=== PATIENT | female | born 1995 | race Two or more races ===

== ENCOUNTER 2017-06-16 21:50 | Emergency (ER) | payer SELFPAY ==
[~2017-06-16] VITALS: Ht 167.6 cm; Wt 81.6 kg
[2017-06-16 23:33] VITALS: BP 119/81
[2017-06-16] MEDS ORDERED: ONDA4TAB10 PO (23:40)
--- NOTE | 2017-06-16 23:45 | PHYS DOC ---
General Chief Complaint: NAUSEA/VOMITING/DIARRHEA Stated Complaint: N/V/D FEVER Time Seen by MD: 23:38 Source: patient Exam Limitations: no limitations Problems: History of Present Illness Initial Comments Patient is a 21-year-old female who comes to the ED complaining of nausea and concerned she may be . Patient states that she's had nausea today with mild headache and body aches, no measured fevers no vomiting or diarrhea. No travel or bad food exposure, last menstrual period is unknown. Patient is sexually active unprotected denies taking control. Denies focal abdominal pain complaints symptoms are described as mild. Vital signs are stable. Timing/Duration: other Modifying Factors: improves with other Associated Symptoms: headaches, nausea/vomiting, other Allergies: Coded Allergies: bee venom protein (honey bee) (Verified Allergy, Unknown, 06/16/17) mushroom (Verified Allergy, Unknown, 06/16/17) Uncoded Allergies: UNKNOWN (Allergy, Unknown, 06/16/17) PT STATED "I KNOW I AM ALLERGIC TO SOMETHING, BUT I DONT KNOW WHAT". Past Medical History Medical History: other (asthma, anxiety, bipolar disorder, depression) Surgical History: cholecystectomy, tonsillectomy LMP (Females 10-50): unknown Social History Smoker: cigarettes Alcohol: none Drugs: marijuana Review of Systems Constitutional: chills, denies diaphoresis, denies fever, malaise Respiratory: denies cough, denies shortness of breath Cardiovascular: denies chest pain, denies palpitations Gastrointestinal: see HPI, denies abdominal pain, denies constipation, denies diarrhea, nausea, denies vomiting Genitourinary: denies dysuria, denies frequency, denies hematuria Musculoskeletal: denies back pain, denies joint swelling, denies neck pain Psychiatric/Neurological: see HPI, headache, denies numbness, denies paresthesia Physical Exam General Appearance: no apparent distress Ear, Nose, Throat: hearing grossly normal, normal ENT inspection, normal pharynx Neck: non-tender, supple Respiratory: normal breath sounds, no respiratory distress Cardiovascular: normal peripheral pulses, regular rate, rhythm Gastrointestinal: non tender, soft Back: no CVA tenderness, no vertebral tenderness Neurologic/Psychiatric: 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 I discussed possibility that she is developing a viral gastroenteritis , discussed prescription and [id number] medications as well as dietary modifications. She expressed agreement and understanding with the discharge instructions. Departure Time of Disposition: 23:41 Disposition: 01 HOME, SELF-CARE Diagnosis: viral gastroenteritis Condition: GOOD Patient Instructions: Viral Gastroenteritis, [id number] Additional Instructions: Please review the patient education materials given by ED staff. Clear liquids tonight, advance diet slowly tomorrow as tolerated. Aggressive hydration with Gatorade and water. Zofran ODT start pack was dispensed to you in the ED, take one every 6 hours as needed for nausea and vomiting. Prescription: Zofran ODT Off work through June 30, note given. Cultured yogurt twice daily, (caity garcia) Follow-up with her doctor in 5-7 days if not better. Return to ED with new or changing symptoms. JOSE ROBERTS DO Jun 16, 2017 23:45
[2017-06-16] MEDS ORDERED: ONDANSETRON 4MG ODT 4TABLET STARTPACK. PO ONE (23:55)
[2017-06-16] MEDS ORDERED: ONDANSETRON ODT 4 MG TAB.RAPDIS PO ONE (23:55)
== END 2017-06-17 00:01 | disposition home or self-care (01) ==
LOC: ER 21:50
DX: A08.4 Viral intestinal infection, unspecified (principal); R51 Headache; F12.10 Cannabis abuse, uncomplicated; F17.210 Nicotine dependence, cigarettes, uncomplicated; J45.909 Unspecified asthma, uncomplicated; Z91.030 Bee allergy status; Z91.018 Allergy to other foods
CPT/HCPCS: 81025; 99283; Q0162

== ENCOUNTER 2017-07-12 01:29 | Emergency (ER) | payer SELFPAY ==
[~2017-07-12] VITALS: Ht 154.9 cm; Wt 103.0 kg
[~2017-07-12 01:29] MED LIST: ONDA4TAB10 PO
--- NOTE | 2017-07-12 01:49 | ED.ADGEN ---
Past History Past Medical History: Anxiety, Asthma, Bipolar, Depression Past Surgical History: Cholecystectomy, Tonsillectomy Alcohol Use: None Drug Use: Marijuana Adult General Chief Complaint Chief Complaint " I ve been sick a week or so... but the coughing started today... My grandmother has flu..." HPI HPI Patient is a 21 year old female who presents with above hx and complaints nausea , fever, chills, myalgia, malaise, arthralgia, and nonproductive cough. She has been exposed to her grandmother who has an influenza A. Patient did not get a flu vaccination this year. Patient normally healthy. No recent travel. No history immunosuppression. History of asthma, anxiety, bipolar disorder, depression. Review of Systems Review of Systems Constitutional: History fever or chills [] Eyes: Denies change in visual acuity, redness, or eye pain [] HENT: History nasal congestion and sore throat [] Respiratory: History cough and wheezing Cardiovascular: No additional information not addressed in HPI [] GI: Denies abdominal pain, nausea, vomiting, bloody stools or diarrhea [] : Denies dysuria or hematuria [] Musculoskeletal: Denies back pain or joint pain [] Integument: Denies rash or skin lesions [] Neurologic: Denies headache, focal weakness or sensory changes [] Endocrine: Denies polyuria or polydipsia [] All other systems were reviewed and found to be within normal limits, except as documented in this note. Family History Family History Grandmother of influenza Current Medications Current Medications Current Medications Medications (Trade) Dose Ordered Sig/Karen Start Time Stop Time Status Last Admin Dose Admin Albuterol Sulfate (Ventolin Hfa) 2 puff 1X ONCE 07/12/17 02:00 07/12/17 02:01 DC 07/12/17 02:47 2 PUFF Prednisone (Prednisone) 50 mg ONCE ONCE 07/12/17 02:45 07/12/17 02:46 DC 07/12/17 02:47 50 MG See nursing for home meds- Depo-Provera for control Allergies Allergies Allergies Coded Allergies Type Severity Reaction Last Updated Verified bee venom protein (honey bee) Allergy Unknown 06/16/17 Yes mushroom Allergy Unknown 06/16/17 Yes Uncoded Allergies Type Severity Reaction Last Updated Verified UNKNOWN Allergy Unknown 06/16/17 See nursing for home meds Physical Exam Physical Exam Constitutional: , well nourished, moderately acute distress, non-toxic appearance. [] HENT: Normocephalic, atraumatic, bilateral external ears normal, oropharynx moist, injected pharynx, no oral exudates, nose swollen turbinates and rhinorrhea Eyes: PERRLA, EOMI, conjunctiva normal, no discharge. [] Neck: Normal range of motion, no tenderness, supple, no stridor. [] Cardiovascular: Tachycardia Heart rate regular rhythm, no murmur [] Lungs & Thorax: Bilateral breath sounds equal with few scattered wheezes on auscultation [] Abdomen: Bowel sounds normal, soft, no tenderness, no masses, no pulsatile masses. Obese. Old surgical scar Skin: Warm, dry, no erythema, no rash. [] Back: No tenderness, no CVA tenderness. [] Extremities: No tenderness, no cyanosis, no clubbing, ROM intact, no edema. [] Neurologic: Alert and oriented X 3, normal motor function, normal sensory function, no focal deficits noted. [] Psychologic: Affect anxious, judgement normal, mood normal. [] Current Patient Data Lab Results Laboratory Tests Test 07/12/17 01:33 07/12/17 02:13 Influenza Type A (Rapid) Negative (NEGATIVE) Influenza Type B (Rapid) Negative (NEGATIVE) Group A Streptococcus Rapid Negative (NEGATIVE) Urine Test Negative (NEG) EKG EKG [] Radiology/Procedures Radiology/Procedures [] Course & Med Decision Making Course & Med Decision Making Pertinent Labs and Imaging studies reviewed. (See chart for details). Push fluids. Cool drinks and fruit juices. Tylenol and ibuprofen for discomfort and fever. Benadryl 25-50 mg 4 times a day may be helpful. Follow-up primary care. Use MDI 2 puffs 4 times a day. Prednisone 50 mg a day for 5 days. [] Final Impression Final Impression 1. Viral syndrome[] 2. Asthma Exacerbation Problems: Dragon Disclaimer Dragon Disclaimer This electronic medical record was generated, in whole or in part, using a voice recognition dictation system. ELIZABETH TAYLOR MD Jul 12, 2017 01:49
[2017-07-12] MEDS ORDERED: ALBUTEROL SULFATE 8GM INHALER. INH ONE (02:00)
[2017-07-12] MEDS ORDERED: predniSONE 10 MG TABLET PO ONE (02:00)
[2017-07-12] MEDS ORDERED: predniSONE 20 MG TABLET PO ONE (02:45)
[2017-07-12 03:04] VITALS: BP 128/69
[2017-07-12 03:07] LABS: INFLUENZA A PATIENT NEGATIVE (NEGATIVE); INFLUENZA B PATIENT NEGATIVE (NEGATIVE)
[2017-07-12 03:19] LABS: U PREG PATIENT NEGATIVE (NEG)
[2017-07-12] MEDS ORDERED: PRED50TA PO (03:27)
== END 2017-07-12 04:14 | disposition home or self-care (01) ==
LOC: ER 01:29
DX: B34.9 Viral infection, unspecified (principal); J45.901 Unspecified asthma with (acute) exacerbation; F41.9 Anxiety disorder, unspecified; F31.9 Bipolar disorder, unspecified; F12.10 Cannabis abuse, uncomplicated; Z91.030 Bee allergy status; Z91.018 Allergy to other foods
CPT/HCPCS: 81025; 87070; 87804; 87880; 94640; 99284; J7512; J7613

== ENCOUNTER 2017-08-25 18:29 | Emergency (ER) | payer OTHER ==
[~2017-08-25] VITALS: Ht 154.9 cm; Wt 97.5 kg
[~2017-08-25 18:29] MED LIST changes: +PRED50TA PO
--- NOTE | 2017-08-25 18:32 | ED.ADGEN ---
Past History Past Medical History: Anxiety, Asthma, Bipolar, Depression Past Surgical History: Cholecystectomy, Tonsillectomy Alcohol Use: None Drug Use: Marijuana Adult General Chief Complaint Chief Complaint " I slipped and fell again and hurt this Rt knee.. it same leg I hurt before... and got a DVT in.. but I ve been taking my blood clot meds... but now I ve hurt this knee..." HPI HPI Patient is a 21 year old female who presents with above hx and complaints of right knee pain. Patient localizes pain in the patella and hamstring tendons. No appreciable cording, butt does have tenderness in calf area of previously diagnosed DVT. Distal neurovascular intact. Is able to do straight leg lift. Anterior and posterior cruciate ligaments appear to be intact. Mild tenderness of bilateral collateral ligaments. No other injuries reported. Distal neurovascular appears intact. Review of Systems Review of Systems Constitutional: Denies fever or chills [] Eyes: Denies change in visual acuity, redness, or eye pain [] HENT: Denies nasal congestion or sore throat [] Respiratory: Denies cough or shortness of breath [] Cardiovascular: No additional information not addressed in HPI [] GI: Denies abdominal pain, nausea, vomiting, bloody stools or diarrhea [] : Denies dysuria or hematuria [] Musculoskeletal: Complaints of Rt. knee pain Integument: Denies rash or skin lesions [] Neurologic: Denies headache, focal weakness or sensory changes [] Endocrine: Denies polyuria or polydipsia [] All other systems were reviewed and found to be within normal limits, except as documented in this note. Family History Family History Noncontributory Current Medications Current Medications Current Medications Medications (Trade) Dose Ordered Sig/Karen Start Time Stop Time Status Last Admin Dose Admin Oxycodone/ Acetaminophen (Percocet 5/325) 2 tab 1X ONCE 08/25/17 19:45 08/25/17 19:46 DC 08/25/17 19:56 2 TAB See nursing for home meds. Allergies Allergies Allergies Coded Allergies Type Severity Reaction Last Updated Verified bee venom protein (honey bee) Allergy Unknown 06/16/17 Yes mushroom Allergy Unknown 06/16/17 Yes Uncoded Allergies Type Severity Reaction Last Updated Verified UNKNOWN Allergy Unknown 06/16/17 Physical Exam Physical Exam Constitutional: Moderately acute distress, non-toxic appearance. [] HENT: Normocephalic, atraumatic, bilateral external ears normal, oropharynx moist, no oral exudates, nose normal. [] Eyes: PERRLA, EOMI, conjunctiva normal, no discharge. [] Neck: Normal range of motion, no tenderness, supple, no stridor. [] Cardiovascular:Heart rate regular rhythm, no murmur [] Lungs & Thorax: Bilateral breath sounds equal at apexes with scattered wheezes on auscultation [] Abdomen: Bowel sounds normal, soft, no tenderness, no masses, no pulsatile masses. Obese. Old surgery scars Skin: Warm, dry, no erythema, no rash. [] Back: No tenderness, no CVA tenderness. [] Extremities: No tenderness, no cyanosis, no clubbing, ROM intact, no edema. [] Except findings and right knee as per history of present illness Neurologic: Alert and oriented X 3, normal motor function, normal sensory function, no focal deficits noted. [] Psychologic: Affect anxious, judgement normal, mood normal. [] Current Patient Data Vital Signs Vital Signs Date Time Temp Pulse Resp B/P (MAP) Pulse Ox O2 Delivery O2 Flow Rate FiO2 08/25/17 20:17 98.3 97 20 126/87 (100) 99 08/25/17 19:56 Room Air EKG EKG [] Radiology/Procedures Radiology/Procedures My interpretation of knee films shows no obvious fracture dislocation.[] Course & Med Decision Making Course & Med Decision Making Pertinent Labs and Imaging studies reviewed. (See chart for details). Ice packs as needed. Cole wrap. Rest and elevation. Tylenol and ibuprofen for pain. Continue Xarelto as directed. Stop smoking. Return if any concerns. Follow up with primary. [] Final Impression Final Impression 1. Sprain / Strain 2. Hx of Rt. calf DVT[] Problems: Dragon Disclaimer Dragon Disclaimer This electronic medical record was generated, in whole or in part, using a voice recognition dictation system. ELIZABETH TAYLOR MD Aug 25, 2017 18:32
[2017-08-25] MEDS ORDERED: oxyCODONE/APAP 5/325 1 TAB TABLET PO ONE (19:45)
[2017-08-25 20:17] VITALS: BP 126/87
--- NOTE | 2017-08-26 07:41 | RAD ---
4 views right knee 08/25/2017 8:51 PM Indication: injury- fall Comparison: None Findings: There is no fracture or dislocation identified. Articular surfaces are uninterrupted. Soft tissues are unremarkable. Impression: No evidence of acute osseous abnormality
== END 2017-08-25 20:17 | disposition home or self-care (01) ==
LOC: ER 18:29
DX: M25.561 Pain in right knee (principal); Z86.718 Personal history of other venous thrombosis and embolism; J45.909 Unspecified asthma, uncomplicated; F12.10 Cannabis abuse, uncomplicated; F31.9 Bipolar disorder, unspecified; F41.9 Anxiety disorder, unspecified; Z91.030 Bee allergy status; Z91.018 Allergy to other foods; W01.0XXA Fall on same level from slipping, tripping and stumbling without subsequent striking against object, initial encounter; Y93.89 Activity, other specified; Y99.8 Other external cause status; Y92.89 Other specified places as the place of occurrence of the external cause
CPT/HCPCS: 73564; 99284

== ENCOUNTER 2017-10-11 21:18 | Emergency (ER) | payer OTHER ==
[~2017-10-11] VITALS: Ht 154.9 cm; Wt 90.0 kg
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
--- NOTE | 2017-10-11 22:25 | EKG ---
[address] [address] Test Date: 2017-10-11 Test Time: 22:21:38 Pat Name: HARSHAD STUBBS Department: Room: Gender: F Job Lithographer: CARLOS ALBERTO : 1995 Requested By: ELIZABETH TAYLOR Order Number: [id number] Reading MD: Measurements Intervals [place] Rate: 64 P: 24 CT: 160 QRS: 41 QRSD: 96 T: 35 QT: 372 QTc: 388 Interpretive Statements SINUS RHYTHM ATRIAL PREMATURE COMPLEX(ES) NO SPECIFIC ECG ABNORMALITIES RI6.01 No previous ECG available for comparison
[2017-10-11] MEDS ORDERED: IV RINGERS SOLUTION,LACTATED 1,000 ML IV SCH (22:30)
[2017-10-11] MEDS ORDERED: FAMOTIDINE 20 MG/2 ML VIAL IVP ONE (22:30)
[2017-10-11] MEDS ORDERED: KETOROLAC 30 MG/ML VIAL. IV ONE (22:30)
[2017-10-11] MEDS ORDERED: ONDANSETRON PF 4 MG/2 ML VIAL. IV ONE (22:30)
[2017-10-11 22:35] LABS: BASO # 0.1 x10^3/uL (0.0-0.2); BASO % 1 % (0-3); EOS # 0.3 x10^3/uL (0.0-0.7); EOS % 3 % (0-3); HEMATOCRIT 39.3 % (36.0-47.0); HEMOGLOBIN 13.3 g/dL (12.0-15.5); LYMPH # 2.6 x10^3/uL (1.0-4.8); LYMPH % 22 % (24-48); MEAN CORPUSCULAR HEMOGLOBIN 28 pg (25-35); MEAN CORPUSCULAR HGB CONC 34 g/dL (31-37); MEAN CORPUSCULAR VOLUME 84 fL (79-100); MONO # 0.9 x10^3/uL (0.0-1.1); MONO % 8 % (0-9); NEUT # 8.1 x10^3uL (1.8-7.7); NEUT % 67 % (31-73); PLATELET COUNT 242 x10^3/uL (140-400); RED CELL DISTRIBUTION WIDTH 13.3 % (11.5-14.5)
[2017-10-11 22:37] LABS: BARBITURATES NEG (NEG); BENZODIAZEPINES NEG (NEG); CANNABINOIDS POS (NEG); COCAINE NEG (NEG); METHADONE NEG (NEG); OPIATES NEG (NEG); PHENCYCLIDINE NEG (NEG)
[2017-10-11 22:38] LABS: AMPHETAMINE/METHAMPHETAMINE NEG (NEG)
[2017-10-11 22:41] LABS: ALBUMIN 3.4 g/dL (3.4-5.0); CALCIUM 8.7 mg/dL (8.5-10.1); CREATININE 0.7 mg/dL (0.6-1.0); DIRECT BILIRUBIN 0.1 mg/dL (0.0-0.2); GFR 103.7; POTASSIUM 3.8 mmol/L (3.5-5.1); TOTAL BILIRUBIN 0.3 mg/dL (0.2-1.0); TOTAL PROTEIN 6.9 g/dL (6.4-8.2)
[2017-10-11 22:47] LABS: BACTERIA,URINE 0 /HPF (0-FEW); BILIRUBIN,URINE NEG (NEG); CLARITY,URINE CLEAR; COLOR,URINE YELLOW; GLUCOSE,URINE NEG (NEG); NITRITE,URINE NEG (NEG); RBC,URINE 0 /HPF (0-2); SQUAMOUS EPITHELIAL CELL,UR OCC /LPF; UROBILINOGEN,URINE 0.2 mg/dL (0.2 mg/dL)
[2017-10-11] MEDS ORDERED: ONDA8TAB12 PO (23:07)
[2017-10-11] MEDS ORDERED: SULF1TAB23 PO (23:07)
[2017-10-11 23:30] VITALS: BP 119/70
--- NOTE | 2017-10-12 07:42 | RAD ---
Abdominal series including frontal chest radiograph and 2 views of the abdomen 10/12/2017 Indication: Abdominal pain. Nausea. Vomiting. Comparison study: None Findings: The lungs are clear. Heart size is normal. No pneumothorax or pleural effusion is identified. Bony thorax is intact. No gross pneumoperitoneum is identified. The bowel gas pattern is nonobstructive. Prior cholecystectomy noted. No acute osseous changes are seen. Impression: No radiographic evidence of acute cardiopulmonary or intra-abdominal process
== END 2017-10-11 23:33 | disposition home or self-care (01) ==
LOC: ER 21:18
DX: N39.0 Urinary tract infection, site not specified (principal); B34.9 Viral infection, unspecified; F12.90 Cannabis use, unspecified, uncomplicated; F41.9 Anxiety disorder, unspecified; J45.909 Unspecified asthma, uncomplicated; F31.9 Bipolar disorder, unspecified; K58.0 Irritable bowel syndrome with diarrhea; Z90.49 Acquired absence of other specified parts of digestive tract; Z72.0 Tobacco use; Z91.030 Bee allergy status; Z91.018 Allergy to other foods
CPT/HCPCS: 36415; 74022; 80048; 80076; 80307; 81001; 81025; 82150; 83690; 85025; 85610; 85730; 87086; 93005; 96361; 96374; 96375; 99285; J1885; J2405; J7120; S0028; G0479

== ENCOUNTER 2017-10-28 08:53 | Emergency (ER) | payer OTHER ==
[~2017-10-28] VITALS: Ht 154.9 cm; Wt 85.8 kg
[~2017-10-28 08:53] MED LIST changes: +ONDA8TAB12 PO; +SULF1TAB23 PO
[2017-10-28 09:56] LABS: BASO # 0.1 x10^3/uL (0.0-0.2); BASO % 1 % (0-3); EOS # 0.2 x10^3/uL (0.0-0.7); EOS % 3 % (0-3); HEMATOCRIT 36.7 % (36.0-47.0); HEMOGLOBIN 12.4 g/dL (12.0-15.5); LYMPH # 1.6 x10^3/uL (1.0-4.8); LYMPH % 20 % (24-48); MEAN CORPUSCULAR HEMOGLOBIN 28 pg (25-35); MEAN CORPUSCULAR HGB CONC 34 g/dL (31-37); MEAN CORPUSCULAR VOLUME 83 fL (79-100); MONO # 0.7 x10^3/uL (0.0-1.1); MONO % 9 % (0-9); NEUT # 5.5 x10^3uL (1.8-7.7); NEUT % 68 % (31-73); PLATELET COUNT 248 x10^3/uL (140-400); RED BLOOD COUNT 4.42 x10^6/uL (3.50-5.40); RED CELL DISTRIBUTION WIDTH 13.4 % (11.5-14.5); WHITE BLOOD COUNT 8.2 x10^3/uL (4.0-11.0)
[2017-10-28 10:01] LABS: BILIRUBIN,URINE NEG (NEG); CLARITY,URINE CLOUDY; COLOR,URINE AMBER; GLUCOSE,URINE NEG (NEG)
[2017-10-28 10:02] LABS: BACTERIA,URINE FEW /HPF (0-FEW); NITRITE,URINE NEG (NEG); SQUAMOUS EPITHELIAL CELL,UR MOD /LPF; UROBILINOGEN,URINE 0.2 mg/dL (0.2 mg/dL)
[2017-10-28 10:23] LABS: ALBUMIN 3.3 g/dL (3.4-5.0); CALCIUM 8.6 mg/dL (8.5-10.1); CREATININE 0.6 mg/dL (0.6-1.0); DIRECT BILIRUBIN 0.1 mg/dL (0.0-0.2); GFR 123.9; POTASSIUM 3.7 mmol/L (3.5-5.1); TOTAL BILIRUBIN 0.2 mg/dL (0.2-1.0); TOTAL PROTEIN 6.4 g/dL (6.4-8.2)
--- NOTE | 2017-10-28 11:01 | RAD ---
Obstetrical ultrasound, 10/28/2017: HISTORY: Right lower quadrant pain, Transabdominal and transvaginal scans were obtained. The uterus contains a small gestational sac demonstrating a mean diameter of 6 mm compatible with a gestational age of 5 weeks and 2 days. A yolk sac is evident within the gestational sac. A pole is not identified. That is not abnormal at this early stage. The sonographic EDC is 04/28/2019. There is a small irregular hypoechoic area in the central uterine cavity suggesting a small subchorionic hemorrhage. It measures approximately 0.5 x 1.6 cm. The ovaries are of normal size. There is a 1.5 cm cyst in the left ovary. A 1.3 cm cyst is evident in the right ovary. Blood flow is present in both ovaries. The adnexal regions are otherwise unremarkable. There is a small amount of simple free fluid in the cul-de-sac. IMPRESSION: 1. Early intrauterine gestational sac of 5-6 weeks gestational age. 2. Small subchorionic hemorrhage. 3. Small bilateral ovarian cysts. 4. Small amount of free fluid in the cul-de-sac. Electronically signed by: Anthony Miller MD (10/28/2017 10:58 AM) [facility]
[2017-10-28 11:36] VITALS: BP 113/61
[2017-10-28] MEDS ORDERED: CEPH-263 PO (11:50)
--- NOTE | 2017-10-28 11:50 | PHYS DOC ---
Past History Past Medical History: Anxiety, Bipolar, Depression, IBS Past Surgical History: Cholecystectomy Alcohol Use: None Drug Use: Marijuana Adult General Chief Complaint Chief Complaint: abdominal pain HPI HPI 21-year-old female who is a presenting to the emergency department today with abdominal pain in . Her pain is a sharp shooting pain in the suprapubic region which is nonradiating intermittent and without alleviating factors. It is a mild pain. His been present for about 1-2 days. She denies any vaginal bleeding. She has a family history of ectopic . She denies a personal history of ectopic . Review of systems is negative for fevers chills nausea vomiting diarrhea constipation. She denies any rashes on her groin, exposure to STDs or changes in vaginal discharge. All other review of systems is negative unless otherwise noted in history of present illness. ED course: 21-year-old female presenting to the emergency department today with suprapubic abdominal pain. On arrival she is afebrile with a normal heart rate. On examination she is a soft nontender abdomen without rebound tenderness or guarding. Otherwise the remainder the exam is unremarkable. Blood work sent along with ultrasound. Intrauterine identified. Patient does have bacteria in her urine. Simple cystitis versus asymptomatic bacteriuria. 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 The patient has been examined and was not found to have an emergency medical condition. The patient was then discharged home in stable condition. They were to return if their symptoms worsened or if they were concerned for any reason. [id number] discharge instructions and return precautions were given. Patient's questions were answered to their satisfaction. Patient is comfortable with plan. Review of Systems Review of Systems SEE ABOVE. Allergies Allergies Allergies Coded Allergies Type Severity Reaction Last Updated Verified bee venom protein (honey bee) Allergy Unknown 06/16/17 Yes mushroom Allergy Unknown 06/16/17 Yes Physical Exam Physical Exam SEE ABOVE Constitutional: Well developed, well nourished, no acute distress, non-toxic appearance. HENT: Normocephalic, atraumatic, bilateral external ears normal, oropharynx moist, no oral exudates, nose normal. [] Eyes: PERRLA, EOMI, conjunctiva normal, no discharge. [] Neck: Normal range of motion, no tenderness, supple, no stridor. Cardiovascular:Heart rate regular rhythm, no murmur [] Lungs & Thorax: Bilateral breath sounds clear to auscultation [] Abdomen: Bowel sounds normal, soft, no tenderness, no masses, no pulsatile masses. [] Skin: Warm, dry, no erythema, no rash. Back: No tenderness, no CVA tenderness. [] Extremities: No tenderness, no cyanosis, no clubbing, ROM intact, no edema. [] Neurologic: Alert and oriented X 3, normal motor function, normal sensory function, no focal deficits noted. [] Psychologic: Affect normal, judgement normal, mood normal. [] Current Patient Data Vital Signs Vital Signs Date Time Temp Pulse Resp B/P (MAP) Pulse Ox O2 Delivery O2 Flow Rate FiO2 10/28/17 11:36 79 113/61 (78) 10/28/17 09:18 98.2 18 99 Room Air Lab Results Laboratory Tests Test 10/28/17 09:10 10/28/17 09:31 Urine Collection Type Unknown Urine Color [place] Urine Clarity Cloudy Urine pH 6.5 Urine Specific [place] 1.025 Urine Protein Trace (NEG-TRACE) Urine Glucose (UA) Neg mg/dL (NEG) Urine Ketones (Stick) Neg mg/dL (NEG) Urine Blood Neg (NEG) Urine Nitrite Neg (NEG) Urine Bilirubin Neg (NEG) Urine Urobilinogen Dipstick 0.2 mg/dL (0.2 mg/dL) Urine Leukocyte Esterase Trace (NEG) Urine RBC 1-2 /HPF (0-2) Urine WBC 5-10 /HPF (0-4) Urine Squamous Epithelial Cells Mod /LPF Urine Bacteria Few /HPF (0-FEW) Urine Mucus Slight /LPF White Blood Count 8.2 x10^3/uL (4.0-11.0) Red Blood Count 4.42 x10^6/uL (3.50-5.40) Hemoglobin 12.4 g/dL (12.0-15.5) Hematocrit 36.7 % (36.0-47.0) Mean Corpuscular Volume 83 fL (79-100) Mean Corpuscular Hemoglobin 28 pg (25-35) Mean Corpuscular Hemoglobin Concent 34 g/dL (31-37) Red Cell Distribution Width 13.4 % (11.5-14.5) Platelet Count 248 x10^3/uL (140-400) Neutrophils (%) (Auto) 68 % (31-73) Lymphocytes (%) (Auto) 20 % (24-48) L Monocytes (%) (Auto) 9 % (0-9) Eosinophils (%) (Auto) 3 % (0-3) Basophils (%) (Auto) 1 % (0-3) Neutrophils # (Auto) 5.5 x10^3uL (1.8-7.7) Lymphocytes # (Auto) 1.6 x10^3/uL (1.0-4.8) Monocytes # (Auto) 0.7 x10^3/uL (0.0-1.1) Eosinophils # (Auto) 0.2 x10^3/uL (0.0-0.7) Basophils # (Auto) 0.1 x10^3/uL (0.0-0.2) Maternal Serum HCG Beta Subunit 2051 mIU/mL (0-6) H Sodium Level 140 mmol/L (136-145) Potassium Level 3.7 mmol/L (3.5-5.1) Chloride Level 107 mmol/L (98-107) Carbon Dioxide Level 23 mmol/L (21-32) Anion Gap 10 (6-14) Blood Urea Nitrogen 6 mg/dL (7-20) L Creatinine 0.6 mg/dL (0.6-1.0) Estimated GFR (Cockcroft-Gault) 123.9 Glucose Level 96 mg/dL (70-99) Calcium Level 8.6 mg/dL (8.5-10.1) Total Bilirubin 0.2 mg/dL (0.2-1.0) Direct Bilirubin 0.1 mg/dL (0.0-0.2) Aspartate Amino Transferase (AST) 15 U/L (15-37) Alanine Aminotransferase (ALT) 19 U/L (14-59) Alkaline Phosphatase 58 U/L (46-116) Total Protein 6.4 g/dL (6.4-8.2) Albumin 3.3 g/dL (3.4-5.0) L Lipase 77 U/L (73-393) EKG EKG [] Radiology/Procedures Radiology/Procedures [] Course & Med Decision Making Course & Med Decision Making Pertinent Labs and Imaging studies reviewed. (See chart for details) [] Dragon Disclaimer Dragon Disclaimer This electronic medical record was generated, in whole or in part, using a voice recognition dictation system. Departure Departure: Impression: Primary Impression: Abdominal pain affecting Additional Impression: Bacteriuria Disposition: HOME, SELF-CARE Condition: STABLE Referrals: PCP,LU (PCP) Patient Instructions: Abdominal Pain Additional Instructions: Thank you for allowing us to participate in your care today. Followup with your primary care physician in 3 days if your symptoms do not improve. Call your Primary Doctor tomorrow and inform them of your visit today. If you do not have a primary care provider you can ask for a list of our primary care providers. Return to the emergency department you have any new or concerning findings. This should be evaluated by the primary care physician and any necessary consulting services for continued management within a few days after discharge. Return to emergency room if you have any new or concerning symptoms including but not limited to fever, chills, nausea, vomiting, intractable pain, any new rashes, chest pain, shortness of air, uncontrolled bleeding, difficulty breathing, and/or vision loss. If at any time, you are having difficulty getting into your primary care doctor or a specialist, return to the emergency department. Scripts Cephalexin (KEFLEX) 250 Mg Capsule 1 CAP PO QID, #20 CAP Prov: RENATO JOHNSON MD 10/28/17 Problem Qualifiers REANTO JOHNSON MD October 28, 2017 11:50
== END 2017-10-28 12:02 | disposition home or self-care (01) ==
LOC: ER 08:53
DX: O26.891 Other specified pregnancy related conditions, first trimester (principal); R82.71 Bacteriuria; O99.341 Other mental disorders complicating pregnancy, first trimester; O99.611 Diseases of the digestive system complicating pregnancy, first trimester; O99.321 Drug use complicating pregnancy, first trimester; F41.9 Anxiety disorder, unspecified; F31.9 Bipolar disorder, unspecified; K58.9 Irritable bowel syndrome, unspecified; F12.10 Cannabis abuse, uncomplicated; Z3A.01 Less than 8 weeks gestation of pregnancy; Z91.030 Bee allergy status; Z91.018 Allergy to other foods
CPT/HCPCS: 36415; 76801; 76817; 80048; 80076; 81001; 83690; 84702; 85025; 86901; 87086; 99285-25

== ENCOUNTER 2017-11-14 12:26 | Emergency (ER) | payer OTHER ==
[~2017-11-14] VITALS: Ht 154.9 cm; Wt 84.4 kg
[~2017-11-14 12:26] MED LIST changes: +CEPH-263 PO
[2017-11-14] MEDS ORDERED: IV NORMAL SALINE 1,000ML 1,000 ML IV ONE (12:45)
[2017-11-14] MEDS ORDERED: PROCHLORPERAZINE 10 MG/2 ML VIAL. IV ONE (13:00)
[2017-11-14 13:17] LABS: CALCIUM 9.3 mg/dL (8.5-10.1); CREATININE 0.6 mg/dL (0.6-1.0); GFR 123.9; POTASSIUM 3.6 mmol/L (3.5-5.1)
--- NOTE | 2017-11-14 13:22 | PHYS DOC ---
Past History Past Medical History: Anxiety, Bipolar, Depression, IBS Past Surgical History: Cholecystectomy Alcohol Use: None Drug Use: Marijuana Adult General Chief Complaint Chief Complaint: ABDOMINAL PAIN IN HPI HPI 21-year-old female presents with 2 day history of nausea, vomiting, and abdominal pain. Patient is about 8 weeks . For the last 2 days she has been very nauseated and has had difficulty even keeping down fluids. Last night the patient began to have some lower right quadrant abdominal "pulling" this is gotten somewhat worse today. The patient presents to ED today because when she went to stand up she felt very dizzy and thought she might black out. She decided she might be overly dehydrated and should seek medical care. He denies fever or chills. She has no known sick contacts. She has not had significant vomiting with her previous pregnancies. She denies any vaginal bleeding. She had an ultrasound confirming intrauterine 2 weeks ago at this facility. Review of Systems Review of Systems Constitutional: Denies fever or chills [] Eyes: Denies change in visual acuity, redness, or eye pain [] HENT: Denies nasal congestion or sore throat [] Respiratory: Denies cough or shortness of breath [] Cardiovascular: No additional information not addressed in HPI [] GI: Nausea, vomiting, abdominal pain[] : Denies dysuria or hematuria [] Musculoskeletal: Denies back pain or joint pain [] Integument: Denies rash or skin lesions [] Neurologic: Denies headache, focal weakness or sensory changes [] Endocrine: Denies polyuria or polydipsia [] All other systems were reviewed and found to be within normal limits, except as documented in this note. Current Medications Current Medications Current Medications Medications (Trade) Dose Ordered Sig/Karen Start Time Stop Time Status Last Admin Dose Admin Prochlorperazine Edisylate (Compazine) 5 mg 1X ONCE 11/14/17 13:00 11/14/17 13:01 DC 11/14/17 13:01 5 MG Sodium Chloride 1,000 ml @ 1,000 mls/hr 1X ONCE 11/14/17 12:45 11/14/17 13:44 11/14/17 13:01 1,000 MLS/HR Allergies Allergies Allergies Coded Allergies Type Severity Reaction Last Updated Verified bee venom protein (honey bee) Allergy Unknown 06/16/17 Yes mushroom Allergy Unknown 06/16/17 Yes Physical Exam Physical Exam Constitutional: Well developed, well nourished, no acute distress, non-toxic appearance. [] HENT: Normocephalic, atraumatic, bilateral external ears normal, oropharynx moist, no oral exudates, nose normal. [] Eyes: PERRLA, EOMI, conjunctiva normal, no discharge. [] Neck: Normal range of motion, no tenderness, supple, no stridor. [] Cardiovascular:Heart rate regular rhythm, no murmur [] Lungs & Thorax: Bilateral breath sounds clear to auscultation [] Abdomen: Gravid uterus, generalized mild abdominal tenderness[] Skin: Warm, dry, no erythema, no rash. [] Back: No tenderness, no CVA tenderness. [] Extremities: No tenderness, no cyanosis, no clubbing, ROM intact, no edema. [] Neurologic: Alert and oriented X 3, normal motor function, normal sensory function, no focal deficits noted. [] Psychologic: Affect normal, judgement normal, mood normal. [] EKG EKG [] Radiology/Procedures Radiology/Procedures [] Course & Med Decision Making Course & Med Decision Making Pertinent Labs and Imaging studies reviewed. (See chart for details) The patient's labs are unremarkable. Her urine is suspicious for infection. She has moderate leukocyte esterase and 11-20 white cells. Given her , I will go ahead and treat her with Augmentin for 5 days. [] Dragon Disclaimer Dragon Disclaimer This electronic medical record was generated, in whole or in part, using a voice recognition dictation system. Departure Departure: Referrals: PCP,NO (PCP) SUSHANT NIELSEN DO Nov 14, 2017 13:22
[2017-11-14 13:24] LABS: BASO # 0.1 x10^3/uL (0.0-0.2); BASO % 1 % (0-3); EOS # 0.2 x10^3/uL (0.0-0.7); EOS % 3 % (0-3); HEMATOCRIT 37.1 % (36.0-47.0); HEMOGLOBIN 12.6 g/dL (12.0-15.5); LYMPH % 27 % (24-48); MEAN CORPUSCULAR HEMOGLOBIN 28 pg (25-35); MEAN CORPUSCULAR HGB CONC 34 g/dL (31-37); MEAN CORPUSCULAR VOLUME 83 fL (79-100); MONO # 0.7 x10^3/uL (0.0-1.1); MONO % 9 % (0-9); NEUT # 4.3 x10^3uL (1.8-7.7); NEUT % 60 % (31-73); PLATELET COUNT 237 x10^3/uL (140-400); RED BLOOD COUNT 4.48 x10^6/uL (3.50-5.40); RED CELL DISTRIBUTION WIDTH 13.1 % (11.5-14.5); WHITE BLOOD COUNT 7.2 x10^3/uL (4.0-11.0)
--- NOTE | 2017-11-14 13:30 | EKG ---
[address] [address] Test Date: 2017-11-14 Test Time: 13:25:49 Pat Name: HARSHAD STUBBS Department: Room: Gender: F [employer] Preparer: CARLOS ALBERTO : 1995 Requested By: SUSHANT NIELSEN Order Number: [id number] Reading MD: Measurements Intervals [place] Rate: 55 P: 26 CA: 144 QRS: 55 QRSD: 90 T: 37 QT: 432 QTc: 415 Interpretive Statements SINUS RHYTHM NORMAL ECG RI6.01 Compared to ECG 10/11/2017 22:21:38 No significant changes
[2017-11-14 13:51] LABS: BILIRUBIN,URINE NEG (NEG); CLARITY,URINE HAZY; COLOR,URINE YELLOW; GLUCOSE,URINE NEG (NEG); NITRITE,URINE NEG (NEG); UROBILINOGEN,URINE 0.2 mg/dL (0.2 mg/dL)
[2017-11-14 13:52] LABS: BACTERIA,URINE MOD /HPF (0-FEW); SQUAMOUS EPITHELIAL CELL,UR MANY /LPF
[2017-11-14] MEDS ORDERED: PROC5TAB34 PO (14:07)
[2017-11-14] MEDS ORDERED: AMOX1TAB61 PO (14:09)
[2017-11-14 14:10] VITALS: BP 109/58
== END 2017-11-14 14:10 | disposition home or self-care (01) ==
LOC: ER 12:26
DX: O21.9 Vomiting of pregnancy, unspecified (principal); O99.611 Diseases of the digestive system complicating pregnancy, first trimester; O99.341 Other mental disorders complicating pregnancy, first trimester; K58.9 Irritable bowel syndrome, unspecified; F32.9 Major depressive disorder, single episode, unspecified; F41.9 Anxiety disorder, unspecified; Z3A.08 8 weeks gestation of pregnancy; Z90.49 Acquired absence of other specified parts of digestive tract; Z91.030 Bee allergy status; Z91.018 Allergy to other foods
CPT/HCPCS: 36415; 80048; 81001; 84702; 85025; 87086; 93005; 96361; 96374; 99285; J0780; J7030

== ENCOUNTER 2017-11-23 00:46 | Emergency (ER) | payer OTHER ==
[~2017-11-23] VITALS: Ht 167.6 cm; Wt 102.1 kg
[~2017-11-23 00:46] MED LIST changes: +AMOX1TAB61 PO; +PROC5TAB34 PO
[2017-11-23 02:01] LABS: BACTERIA,URINE 0 /HPF (0-FEW); BILIRUBIN,URINE NEG (NEG); CLARITY,URINE CLEAR; COLOR,URINE YELLOW; GLUCOSE,URINE NEG (NEG); NITRITE,URINE NEG (NEG); RBC,URINE RARE /HPF (0-2); SQUAMOUS EPITHELIAL CELL,UR FEW /LPF; UROBILINOGEN,URINE 0.2 mg/dL (0.2 mg/dL); WBC,URINE OCC /HPF (0-4)
[2017-11-23 02:27] LABS: BASO # 0.1 x10^3/uL (0.0-0.2); BASO % 1 % (0-3); EOS # 0.2 x10^3/uL (0.0-0.7); EOS % 3 % (0-3); HEMOGLOBIN 12.5 g/dL (12.0-15.5); LYMPH # 2.6 x10^3/uL (1.0-4.8); LYMPH % 27 % (24-48); MEAN CORPUSCULAR HEMOGLOBIN 29 pg (25-35); MEAN CORPUSCULAR HGB CONC 35 g/dL (31-37); MEAN CORPUSCULAR VOLUME 83 fL (79-100); MONO # 0.8 x10^3/uL (0.0-1.1); MONO % 8 % (0-9); NEUT % 62 % (31-73); PLATELET COUNT 242 x10^3/uL (140-400); RED BLOOD COUNT 4.37 x10^6/uL (3.50-5.40); WHITE BLOOD COUNT 9.7 x10^3/uL (4.0-11.0)
[2017-11-23 02:50] VITALS: BP 122/83
--- NOTE | 2017-11-23 02:52 | ED.ADGEN ---
Past History Past Medical History: Anxiety, Asthma, Bipolar, Depression, Other Past Surgical History: No Surgical History Alcohol Use: None Drug Use: Marijuana Adult General [facility] HPI Patient is a 21 year old female who presents with spotting of blood from her vagina. Patient is known to be about 10 weeks gestation based on her last menstrual period. She came to the ER this evening after she urinated and she noticed some scant amount of red blood on her tissue paper. She does endorse some very mild pelvic cramping and recent days. The patient was evaluated in this emergency department 2 weeks earlier with similar complaints. At that time , she was noted to have a gestational sac in the uterus with no fetus seen. She has not had a fever or chills. She denies irregular vaginal discharge. She has no nausea or vomiting. No significant pelvic or abdominal pain. Review of Systems Review of Systems Constitutional: Denies fever or chills Eyes: Denies change in visual acuity HENT: Denies nasal congestion Respiratory: Denies cough or shortness of breath Cardiovascular: No additional information not addressed in HPI GI: Denies abdominal pain, nausea, vomiting : Denies dysuria or hematuria Musculoskeletal: Denies back pain or joint pain Integument: Denies rash or skin lesions All other systems were reviewed and found to be within normal limits, except as documented in this note. Allergies Allergies Allergies Coded Allergies Type Severity Reaction Last Updated Verified bee venom protein (honey bee) Allergy Unknown 06/16/17 Yes mushroom Allergy Unknown 06/16/17 Yes Physical Exam Physical Exam Constitutional: Well developed, well nourished, no acute distress, non-toxic appearance. HENT: Normocephalic, atraumatic, bilateral external ears normal, oropharynx moist Neck: Normal range of motion Lungs & Thorax: no respiratory complaints or distress Abdomen: Bowel sounds normal, soft, no tenderness Skin: Warm, dry, no erythema, no rash. Back: Normal ROM Extremities: No tenderness, no edema. Neurologic: Alert and oriented X 3 Psychologic: Affect normal Pelvic: Normal female external genitalia. Vaginal mucosa is moist and uninflamed. The cervical os is visualized to be closed. Patient has a retroverted uterus. There is no pathologic appearing discharge. There is no cervical motion tenderness. There is no adnexal tenderness or masses. Bimanual exam is completed and the cervix is palpated also to be closed. This is a normal exam. There is no blood seen. Current Patient Data Vital Signs Vital Signs Date Time Temp Pulse Resp B/P (MAP) Pulse Ox O2 Delivery O2 Flow Rate FiO2 11/23/17 00:59 98.0 95 20 98 Room Air Lab Results Laboratory Tests Test 11/23/17 01:08 11/23/17 01:42 Urine Collection Type Unknown Urine Color Yellow Urine Clarity Clear Urine pH 7.0 Urine Specific [place] 1.020 Urine Protein 30 mg/dl (NEG-TRACE) Urine Glucose (UA) Neg mg/dL (NEG) Urine Ketones (Stick) Neg mg/dL (NEG) Urine Blood Small (NEG) Urine Nitrite Neg (NEG) Urine Bilirubin Neg (NEG) Urine Urobilinogen Dipstick 0.2 mg/dL (0.2 mg/dL) Urine Leukocyte Esterase Trace (NEG) Urine RBC Rare /HPF (0-2) Urine WBC Occ /HPF (0-4) Urine Squamous Epithelial Cells Few /LPF Urine Bacteria 0 /HPF (0-FEW) White Blood Count 9.7 x10^3/uL (4.0-11.0) Red Blood Count 4.37 x10^6/uL (3.50-5.40) Hemoglobin 12.5 g/dL (12.0-15.5) Hematocrit 36.0 % (36.0-47.0) Mean Corpuscular Volume 83 fL (79-100) Mean Corpuscular Hemoglobin 29 pg (25-35) Mean Corpuscular Hemoglobin Concent 35 g/dL (31-37) Red Cell Distribution Width 13.0 % (11.5-14.5) Platelet Count 242 x10^3/uL (140-400) Neutrophils (%) (Auto) 62 % (31-73) Lymphocytes (%) (Auto) 27 % (24-48) Monocytes (%) (Auto) 8 % (0-9) Eosinophils (%) (Auto) 3 % (0-3) Basophils (%) (Auto) 1 % (0-3) Neutrophils # (Auto) 6.0 x10^3uL (1.8-7.7) Lymphocytes # (Auto) 2.6 x10^3/uL (1.0-4.8) Monocytes # (Auto) 0.8 x10^3/uL (0.0-1.1) Eosinophils # (Auto) 0.2 x10^3/uL (0.0-0.7) Basophils # (Auto) 0.1 x10^3/uL (0.0-0.2) Microbiology 11/23/17 Wet Prep - Final, Complete EKG EKG [] Radiology/Procedures Radiology/Procedures IUP with normal FHT's. Small subchorionic hematoma is seen Course & Med Decision Making Course & Med Decision Making Pertinent Labs and Imaging studies reviewed. (See chart for details) All results are reviewed and discussed with the patient. There is no clinical suspicion this evening based on the data available that the patient is having a miscarriage. Her cervix is closed. Her ultrasound did reveal a small subchorionic hematoma but not significantly changed from prior ultrasounds. The one difference in today's ultrasound is the presence of a fetus that is appropriately placed. heart tones are present. Patient is discharged home with reassurance. She is encouraged to keep her already scheduled follow-up appointment with her OB on 01 December. Otherwise, return to the emergency department for any new or worsening concerns. Final Impression Final Impression Subchorionic hemorrhage Vaginal bleeding in first trimester. Dragon Disclaimer Dragon Disclaimer This electronic medical record was generated, in whole or in part, using a voice recognition dictation system. CATHY HURD DO Nov 23, 2017 02:52
--- NOTE | 2017-11-23 03:26 | RAD ---
INDICATION: vag bleeding COMPARISON: None. TECHNIQUE: Grayscale and color ultrasound images uterus and adnexa. Transabdominal and transvaginal images obtained. FINDINGS: Uterus: 110 x 83 x 55 mm. Hypoechoic structure adjacent to gestational sac measuring 30 x 8 mm.. There is a gestational sac within the uterus. pole with crown-rump length of 20 mm. heartbeat 165. Too early in to evaluate placenta. Gestational sac unremarkable in shape. Probable nabothian cysts. Dominant follicle or small cyst left ovary, 19 mm. Right Ovary: 31 x 18 x 16 mm. Left Ovary: 34 x 21 x 20 mm. Vascular flow identified to bilateral ovaries. IMPRESSION: 1. Intrauterine is identified with a pole with estimated gestational age of 8 weeks and 5 days. There is a suspected subchorionic hematoma. 2. Recommend routine anomaly screening at 18-22 weeks. Electronically signed by: Bartolo Thomas MD (11/23/2017 3:23 AM) [facility]
[2017-11-24 14:10] LABS: CHLAMYDIA PROBE Positive (Negative)
== END 2017-11-23 02:48 | disposition home or self-care (01) ==
LOC: ER 00:46
DX: O46.91 Antepartum hemorrhage, unspecified, first trimester (principal); Z3A.08 8 weeks gestation of pregnancy; Z91.030 Bee allergy status; Z91.018 Allergy to other foods
CPT/HCPCS: 36415; 76801; 81001; 84702; 85025; 87491; 87591; 99285; Q0111

== ENCOUNTER 2017-11-27 10:55 | Emergency (ER) | payer OTHER ==
[~2017-11-27] VITALS: Ht 162.6 cm; Wt 83.5 kg
[2017-11-27] MEDS ORDERED: ONDANSETRON PF 4 MG/2 ML VIAL. IV ONE (11:15)
[2017-11-27] MEDS ORDERED: 0.9 % SODIUM CHLORIDE 10 ML DISP.SYRIN. IV PRN (11:15)
[2017-11-27] MEDS ORDERED: IV NORMAL SALINE 1,000ML 1,000 ML IV SCH (11:30)
[2017-11-27 11:32] LABS: BASO # 0.1 x10^3/uL (0.0-0.2); BASO % 1 % (0-3); EOS # 0.1 x10^3/uL (0.0-0.7); EOS % 2 % (0-3); HEMATOCRIT 39.6 % (36.0-47.0); HEMOGLOBIN 13.6 g/dL (12.0-15.5); LYMPH # 1.8 x10^3/uL (1.0-4.8); LYMPH % 25 % (24-48); MEAN CORPUSCULAR HEMOGLOBIN 28 pg (25-35); MEAN CORPUSCULAR HGB CONC 34 g/dL (31-37); MEAN CORPUSCULAR VOLUME 83 fL (79-100); MONO # 0.5 x10^3/uL (0.0-1.1); MONO % 8 % (0-9); NEUT # 4.5 x10^3uL (1.8-7.7); NEUT % 64 % (31-73); PLATELET COUNT 238 x10^3/uL (140-400); RED CELL DISTRIBUTION WIDTH 12.9 % (11.5-14.5)
[2017-11-27 11:39] LABS: BILIRUBIN,URINE NEG (NEG); CLARITY,URINE CLEAR; COLOR,URINE YELLOW; GLUCOSE,URINE NEG (NEG)
--- NOTE | 2017-11-27 11:39 | PHYS DOC ---
Past History Past Medical History: Anxiety, Asthma, Bipolar, Depression, Other Past Surgical History: No Surgical History Smoking: Quit Less Than 1 Year Alcohol Use: None Drug Use: Marijuana Adult General Chief Complaint Chief Complaint: ABDOMINAL PAIN IN HPI HPI 22-year-old female patient A2 with LMP of end of August 9 weeks of gestation date she had marked left lower quadrant pain since yesterday after physical activity. The patient complaining of sudden onset of nonexertional sharp suprapubic pain that started about an hour ago the patient to upper abdomen and associated with nausea. Patient rated her pain 10 over 10 denies fever and chills, urinary symptoms, vaginal bleeding or discharge, diarrhea and constipation. Patient had an ultrasound on November 23 that showed normal intrauterine at age of 8 weeks and 5 days with heart rate of 165. Review of Systems Review of Systems Constitutional: Denies fever or chills [] Eyes: Denies change in visual acuity, redness, or eye pain [] HENT: Denies nasal congestion or sore throat [] Respiratory: Denies cough or shortness of breath [] Cardiovascular: No additional information not addressed in HPI [] GI: Reports abdominal pain, nausea, denies vomiting, bloody stools or diarrhea [ ] : Denies dysuria or hematuria [] Musculoskeletal: Denies back pain or joint pain [] Integument: Denies rash or skin lesions [] Neurologic: Denies headache, focal weakness or sensory changes [] Endocrine: Denies polyuria or polydipsia [] All other systems were reviewed and found to be within normal limits, except as documented in this note. Current Medications Current Medications Current Medications Medications (Trade) Dose Ordered Sig/Karen Start Time Stop Time Status Last Admin Dose Admin Ondansetron HCl (Zofran) 4 mg 1X ONCE 11/27/17 11:15 11/27/17 11:16 DC 11/27/17 11:22 4 MG Sodium Chloride (Normal Saline Flush) 10 ml QSHIFT PRN 11/27/17 11:15 Allergies Allergies Allergies Coded Allergies Type Severity Reaction Last Updated Verified bee venom protein (honey bee) Allergy Unknown 06/16/17 Yes mushroom Allergy Unknown 06/16/17 Yes Physical Exam Physical Exam Constitutional: Well nourished, mild distress, non-toxic appearance. [] HENT: Normocephalic, atraumatic, oropharynx moist Eyes: PERRLA, EOMI, conjunctiva normal, no discharge. [] Neck: Normal range of motion, no tenderness, supple, no stridor. [] Cardiovascular:Heart rate regular rhythm, no murmur [] Lungs & Thorax: Bilateral breath sounds clear to auscultation [] Abdomen: Bowel sounds normal, soft, no tenderness, no masses, no pulsatile masses, patient refused vaginal exam. [] Skin: Warm, dry, no erythema, no rash. [] Back: No tenderness, no CVA tenderness. [] Extremities: No tenderness, no cyanosis, no clubbing, ROM intact, no edema. [] Neurologic: Alert and oriented X 3, normal motor function, normal sensory function, no focal deficits noted. [] Psychologic: Very anxious, judgement normal, mood normal. [] EKG EKG [] Radiology/Procedures Radiology/Procedures [][address] [address] IMAGING REPORT Signed PATIENT: HARSHAD STUBBS I ACCOUNT: [id number] : 1995 LOCATION: ER AGE: 22 SEX: F EXAM STATUS: REG ER ORD. PHYSICIAN: MARCOS VANN MD REASON: left lower quadrant pain, 9 weeks PROCEDURE: OB <14 WKS W/TV EXAM: Obstetrics sonogram. HISTORY: Left lower quadrant pain. TECHNIQUE: Sonographic imaging of a gravid uterus was performed. COMPARISON: 11/23/2017. FINDINGS: There is a single intrauterine gestational sac with pole and yolk sac. The crown-rump length is 2.4 cm, corresponding with a gestational age of 9 weeks and 1 day. The heart rate is 162 bpm. The gestational sac is normal in configuration. There is an elongated subchorionic hematoma measuring 1.7 cm in maximum thickness and 4.8 cm in length. The ovaries are normal in size and demonstrate normal blood flow. There is a 1.6 cm left ovarian follicular cyst. There is no pelvic free fluid. There is nabothian cyst within the cervix. IMPRESSION: 1. Single intrauterine fetus with an estimated gestational age of 9 weeks and 1 day and heart rate of 162 bpm. 2. Elongated subchorionic hematoma measuring 4.8 x 1.7 cm in maximum dimensions. This is similar to minimally increased in size compared to the prior study, allowing for differences in measurement technique. 3. Suspected 1.6 cm left corpus luteum cyst. Electronically signed by: Hazel Pena MD (11/27/2017 1:34 PM) [facility] DICTATED AND SIGNED BY: HAZEL PENA MD DATE: 11/27/17 9841 CC: MARCOS VANN MD; PCP,UNKNOWN ~ Course & Med Decision Making Course & Med Decision Making Pertinent Labs and Imaging studies reviewed. (See chart for details) Evaluation of patient in ER showed 22-year-old female patient at 19 weeks of gestation with complaining of lower abdominal pain for 1 hour. Patient had multiple OB ultrasound in this hospital previously with unremarkable physical exam except for anxiety. Patient had hCG of 57,000 with unremarkable OB ultrasound except for subchorionic hematoma without change from the previous ultrasound on 11/22/2017. Patient felt better with IV fluid in ER and didn't want to have pain medication and stated she feels better and wanted to go home. Patient instructed to have pelvic rest and follow up with her PRESS C[employer]TER. Dragon Disclaimer Dragon Disclaimer This electronic medical record was generated, in whole or in part, using a voice recognition dictation system. Departure Departure: Impression: Primary Impression: Abdominal pain in Additional Impressions: Subchorionic hematoma in first trimester Anxiety Disposition: 01 HOME, SELF-CARE Condition: IMPROVED Referrals: PCP,UNKNOWN (PCP) Patient Instructions: Abdominal Pain During Additional Instructions: Follow-up with your PRESS C[employer]TER in 2 or 3 days Drink plenty of liquids Return to ER if not getting better Pelvic rest for one week Problem Qualifiers MARCOS VANN MD Nov 27, 2017 11:39
[2017-11-27 11:40] LABS: BACTERIA,URINE 0 /HPF (0-FEW); NITRITE,URINE NEG (NEG); RBC,URINE 0 /HPF (0-2); SQUAMOUS EPITHELIAL CELL,UR FEW /LPF; UROBILINOGEN,URINE 0.2 mg/dL (0.2 mg/dL); WBC,URINE 0 /HPF (0-4)
[2017-11-27 11:41] LABS: AMPHETAMINE/METHAMPHETAMINE NEG (NEG); BARBITURATES NEG (NEG); BENZODIAZEPINES NEG (NEG); CANNABINOIDS POS (NEG); COCAINE NEG (NEG); METHADONE NEG (NEG); OPIATES NEG (NEG); PHENCYCLIDINE NEG (NEG)
[2017-11-27 11:44] LABS: ALBUMIN 3.9 g/dL (3.4-5.0); CALCIUM 8.7 mg/dL (8.5-10.1); CREATININE 0.5 mg/dL (0.6-1.0); GFR 151.6; POTASSIUM 3.5 mmol/L (3.5-5.1); TOTAL BILIRUBIN 0.4 mg/dL (0.2-1.0); TOTAL PROTEIN 7.7 g/dL (6.4-8.2)
[2017-11-27 13:30] VITALS: BP 102/55
--- NOTE | 2017-11-27 13:38 | RAD ---
EXAM: Obstetrics sonogram. HISTORY: Left lower quadrant pain. TECHNIQUE: Sonographic imaging of a gravid uterus was performed. COMPARISON: 11/23/2017. FINDINGS: There is a single intrauterine gestational sac with pole and yolk sac. The crown-rump length is 2.4 cm, corresponding with a gestational age of 9 weeks and 1 day. The heart rate is 162 bpm. The gestational sac is normal in configuration. There is an elongated subchorionic hematoma measuring 1.7 cm in maximum thickness and 4.8 cm in length. The ovaries are normal in size and demonstrate normal blood flow. There is a 1.6 cm left ovarian follicular cyst. There is no pelvic free fluid. There is nabothian cyst within the cervix. IMPRESSION: 1. Single intrauterine fetus with an estimated gestational age of 9 weeks and 1 day and heart rate of 162 bpm. 2. Elongated subchorionic hematoma measuring 4.8 x 1.7 cm in maximum dimensions. This is similar to minimally increased in size compared to the prior study, allowing for differences in measurement technique. 3. Suspected 1.6 cm left corpus luteum cyst. Electronically signed by: Hazel Pena MD (11/27/2017 1:34 PM) [place] [id number]
== END 2017-11-27 13:55 | disposition home or self-care (01) ==
LOC: ER 10:55
DX: O46.8X1 Other antepartum hemorrhage, first trimester (principal); O99.341 Other mental disorders complicating pregnancy, first trimester; O99.512 Diseases of the respiratory system complicating pregnancy, second trimester; F41.9 Anxiety disorder, unspecified; F31.9 Bipolar disorder, unspecified; J45.909 Unspecified asthma, uncomplicated; Z87.891 Personal history of nicotine dependence; Z3A.09 9 weeks gestation of pregnancy; Z91.030 Bee allergy status; Z91.018 Allergy to other foods
CPT/HCPCS: 36415; 76801; 76817; 80053; 80307; 81001; 84702; 85025; 96374; 99285; J2405; G0479; J7030

== ENCOUNTER 2018-01-21 11:09 | Emergency (ER) | payer OTHER ==
[~2018-01-21] VITALS: Ht 162.6 cm; Wt 80.2 kg
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
[2018-01-21 12:50] VITALS: BP 108/52
== END 2018-01-21 12:53 | disposition home or self-care (01) ==
LOC: ER 11:09
DX: O26.892 Other specified pregnancy related conditions, second trimester (principal); R10.30 Lower abdominal pain, unspecified; O99.012 Anemia complicating pregnancy, second trimester; O99.512 Diseases of the respiratory system complicating pregnancy, second trimester; J45.909 Unspecified asthma, uncomplicated; O99.342 Other mental disorders complicating pregnancy, second trimester; F41.9 Anxiety disorder, unspecified; F32.9 Major depressive disorder, single episode, unspecified; Z91.030 Bee allergy status; Z91.018 Allergy to other foods; Z87.891 Personal history of nicotine dependence; Z3A.17 17 weeks gestation of pregnancy; W51.XXXA Accidental striking against or bumped into by another person, initial encounter; Y93.89 Activity, other specified; Y92.89 Other specified places as the place of occurrence of the external cause; Y99.8 Other external cause status
CPT/HCPCS: 99284